=== PATIENT | male | born 1970 | race Caucasian/White ===

== ENCOUNTER → 2018-06-08 | Outpatient (CLI) | payer OTHER ==
[2018-06-08 16:30] LABS: ABSOLUTE EOSINOPHILS # (AUTO) 0.3 10^3/uL (0.0-0.6); ABSOLUTE LYMPHOCYTES (AUTO) 2.3 10^3/uL (0.5-4.7); ABSOLUTE MONOCYTES (AUTO) 0.9 10^3/uL (0.1-1.4); ABSOLUTE NEUT (AUTO) 3.3 10^3/uL (1.7-8.2); BASOPHILS % (AUTO) 0.7 % (0-2); EOSINOPHILS % (AUTO) 4.4 % (0-6); LYMPHOCYTES % (AUTO) 33.6 % (13-45); MEAN CORPUSCULAR HEMOGLOBIN 28.8 pg (27.0-33.4); MEAN CORPUSCULAR HGB CONC 35.5 g/dL (32.0-36.0); MEAN CORPUSCULAR VOLUME 81 fl (80-97); MONOCYTES % (AUTO) 12.6 % (3-13); PLATELET COUNT 242 10^3/uL (150-450); RED BLOOD COUNT 5.55 10^6/uL (4.35-5.55); RED CELL DISTRIBUTION WIDTH 13.9 % (11.5-14.0); SEGMENTED NEUTROPHILS % (AUTO) 48.7 % (42-78); TOTAL CELLS COUNTED % (AUTO) 100 %; WHITE BLOOD COUNT 6.8 10^3/uL (4.0-10.5)
[2018-06-08 16:57] LABS: ALANINE AMINOTRANSFERASE 30 U/L (21-72); ALBUMIN 4.7 g/dL (3.5-5.0); ALKALINE PHOSPHATASE 51 U/L (38-126); ANION GAP 10 (5-19); ASPARTATE AMINO TRANSFERASE 24 U/L (17-59); BILIRUBIN,DIRECT 0.3 mg/dL (0.0-0.4); BILIRUBIN,TOTAL 0.6 mg/dL (0.2-1.3); BLOOD UREA NITROGEN 16 mg/dL (7-20); CALCIUM 10.4 mg/dL (8.4-10.2); CARBON DIOXIDE 25 mmol/L (22-30); CHLORIDE 104 mmol/L (98-107); GLUCOSE 96 mg/dL (75-110); POTASSIUM 3.6 mmol/L (3.6-5.0); SODIUM 138.8 mmol/L (137-145)
== END ==
LOC: CCC 15:36
DX: I10 Essential (primary) hypertension (principal)
CPT/HCPCS: 36415; 80053; 83036; 84443; 85025

== ENCOUNTER → 2018-06-09 | Outpatient (CLI) | payer OTHER ==
[2018-06-09 16:52] LABS: CHOLESTEROL 227.12 mg/dL (0-200); TRIGLYCERIDES 199 mg/dL (<150)
[2018-06-09 17:03] LABS: DIRECT LDL 156 mg/dL (<100)
[2018-06-09 17:07] LABS: VLDL CHOLESTEROL 39.8 mg/dL (10-31)
== END ==
LOC: OD 15:54
DX: Z00.00 Encounter for general adult medical examination without abnormal findings (principal)
CPT/HCPCS: 36415; 80061

== ENCOUNTER 2019-12-15 16:28 | Emergency (ER) | payer SELFPAY ==
[2019-12-15] MEDS ORDERED: DEXAMETHASONE SOD PHOS INJ 10 MG/1 ML VIAL IM ONE (17:21)
[2019-12-15] MEDS ORDERED: KETOROLAC TROMETHAMINE 60 MG/2 ML SDV IM ONE (17:21)
[2019-12-15] MEDS ORDERED: CYCLOBENZAPRINE HCL 10 MG TABLET PO ONE (17:21)
[2019-12-15] MEDS ORDERED: LIDOCAINE 5% (700 MG) TRANSDERMAL ADH..PATCH TP ONE (17:21)
--- NOTE | 2019-12-15 17:21 | ER Document Report ---
ED Medical Screen (RME) - General Chief Complaint: Back Pain Stated Complaint: BACK PAIN Time Seen by Provider: 12/15/19 17:12 Primary Care Provider: [facility] [Primary Care Provider] - Follow up as needed Mode of Arrival: Wheelchair Information source: Patient Notes: 49-year-old male patient with acute on chronic low back pain. Patient reports history of discectomy several years ago. He states occasionally he has flareups similar to this 1. This flareup has been going on for 6 weeks. He reports numbness and tingling both legs although he is able to ambulate. He reports incontinence of urine 3 times in the last 6 weeks. He denies any bowel incontinence. He denies any fevers, chills, IVDU. Patient appears well, nontoxic, vital signs reviewed and are within normal limits. Unable to do full exam in triage, patient will need rectal tone exam due to report of urinary incontinence. He does report urinary incontinence was unexpected, he felt warm slipped down and his pants were wet. He denies it being because of inability to make it to the bathroom in time. I have greeted and performed a rapid initial assessment of this patient. A comprehensive ED assessment and evaluation of the patient, analysis of test results and completion of the medical decision making process will be conducted by additional ED providers. I have specifically instructed the patient or family members with the patient to immediately return to any nursing staff should anything change in the patient's condition or with their chief complaint. TRAVEL OUTSIDE OF THE [place] IN LAST 30 DAYS: No - Related Data Allergies/Adverse Reactions: gabapentin Allergy (Verified 12/15/19 17:18) tramadol Allergy (Verified 06/17/18 12:39) Home Medications: lisinopril-hctz, amlodipine Past Medical History - Social History Chew tobacco use (# tins/day): No Frequency of alcohol use: Rare Drug Abuse: None Renal/ Medical History: Denies: Hx Peritoneal Dialysis Physical Exam - Vital signs Vitals: Temp Pulse Resp BP Pulse Ox 98.7 F 110 H 20 136/80 H 97 12/15/19 16:55 12/15/19 16:55 12/15/19 16:55 12/15/19 16:55 12/15/19 16:55 Course - Vital Signs Vital signs: Temp Pulse Resp BP Pulse Ox 98.7 F 110 H 20 136/80 H 97 12/15/19 16:55 12/15/19 16:55 12/15/19 16:55 12/15/19 16:55 12/15/19 16:55 Doctor's Discharge - Discharge Referrals: [facility] [Primary Care Provider] - Follow up as needed
[2019-12-15] MEDS ORDERED: HYDROMORPHONE HCL INJ/PF 2 MG/ML AMPULE IM ONE (21:12)
[2019-12-15 21:55] LABS: APPEARANCE,URINE CLEAR; BILIRUBIN,URINE NEGATIVE (NEGATIVE); COLOR,URINE STRAW; GLUCOSE, URINE NEGATIVE (NEGATIVE); KETONES,URINE NEGATIVE (NEGATIVE); PROTEIN,URINE NEGATIVE (NEGATIVE); URINE SPECIFIC GRAVITY 1.008; UROBILINOGEN,URINE NEGATIVE mg/dL (<2.0)
--- NOTE | 2019-12-15 22:01 | ER Document Report ---
Entered by DRAGAN CAMARA SCRIBE 12/15/192048 Acting as scribe for:NELLY MEYER, DO ED General - General Chief Complaint: Back Pain Stated Complaint: BACK PAIN Time Seen by Provider: 12/15/19 17:12 Primary Care Provider: [facility] [Primary Care Provider] - Follow up as needed Mode of Arrival: Wheelchair Information source: Patient Notes: This 49 year old male patient presents to the emergency department today with chronic lower back pain. Patient states he has "flareups" x1 a year and this is one of them. Patient states he injured his back at work in 2008 with chronic back pain since. Patient states the past x6 weeks his back pain flared up and has trouble ambulating or getting out of bed. Patient states he takes ibuprofen for pain and does not follow up with pain management anymore since he lost his insurance. Patient states the pain occasionally radiates to his hips and shoots down his lower extremities. Denies abdominal pain or fever. Patient reports loose stool and losing control of his bladder a few times, denies burning. TRAVEL OUTSIDE OF THE [place] IN LAST 30 DAYS: No - Related Data Allergies/Adverse Reactions: gabapentin Allergy (Verified 12/15/19 17:18) tramadol Allergy (Verified 06/17/18 12:39) Home Medications: lisinopril-hctz, amlodipine Past Medical History - General Information source: Patient - Social History Smoking Status: Never Smoker Cigarette use (# per day): No Chew tobacco use (# tins/day): No Frequency of alcohol use: Rare Drug Abuse: None Lives with: Family Family History: None - Past Medical History Cardiac Medical History: Reports: Hx Hypertension Neurological Medical History: Reports: Hx Migraine Traumatic Medical History: Reports: Hx Spine Fracture - 2008 Review of Systems - Review of Systems Constitutional: See HPI. denies: Fever EENT: No symptoms reported Cardiovascular: No symptoms reported Respiratory: No symptoms reported Gastrointestinal: See HPI, Other - loose stool. denies: Abdominal pain Genitourinary: See HPI, Incontinence. denies: Burning Male Genitourinary: No symptoms reported Musculoskeletal: See HPI, Back pain - lower back Skin: No symptoms reported Hematologic/Lymphatic: No symptoms reported Neurological/Psychological: No symptoms reported -: Yes All other systems reviewed and negative Physical Exam - Vital signs Vitals: Temp Pulse Resp BP Pulse Ox 98.7 F 110 H 20 136/80 H 97 12/15/19 16:55 12/15/19 16:55 12/15/19 16:55 12/15/19 16:55 12/15/19 16:55 - General General appearance: Alert - HEENT Head: Normocephalic, Atraumatic Eyes: Normal Pupils: PERRL - Respiratory Respiratory status: No respiratory distress Chest status: Nontender Breath sounds: Normal Chest palpation: Normal - Cardiovascular Rhythm: Regular Heart sounds: Normal auscultation Murmur: No - Abdominal Inspection: Obese Distension: No distension Bowel sounds: Normal Tenderness: Nontender - Rectal Notes: No decreased tone and normal sensation. - Back Notes: Tenderness with palpation to the paraspinal sacral iliac region bilaterally. - Extremities General upper extremity: Normal inspection. No: Edema General lower extremity: Normal inspection. No: Edema - Neurological Neuro grossly intact: Yes Cognition: Normal Orientation: AAOx4 [place] Coma Scale Eye Opening: Spontaneous [place] Coma Scale Verbal: Oriented [place] Coma Scale Motor: Obeys Commands [place] Coma Scale Total: 15 Speech: Normal Sensory: Normal - Psychological Associated symptoms: Normal affect, Normal mood - Skin Skin Temperature: Warm Skin Moisture: Dry Skin Color: Normal Course - Re-evaluation Re-evalutation: 12/15/19 22:58 MDM 49 year old with low back pain that has increased. No injury. No red flags - IVDA, DM, Fever, midline pain. He is improved here with IM dilaudid. Pain down to 2/10 which is improved from the level he has been battling for about 6 weeks. Discussed close follow up and he and expressed understanding. Ua is reviewed too. His perirectal region has nl sensation and nl rectal tone is noted on exam too. He does need close follow up and this was discussed. Also the fact he is a fall risk and more so one tonight was discussed. - Vital Signs Vital signs: Temp Pulse Resp BP Pulse Ox 97.5 F 110 H 14 113/75 94 12/15/19 21:23 12/15/19 16:55 12/15/19 22:01 12/15/19 22:01 12/15/19 22:01 - Laboratory Laboratory results interpreted by me: 12/15/19 21:27 Urine Blood MODERATE H Discharge - Discharge Clinical Impression: Abdominal obesity Back pain Qualifiers: Back pain location: low back pain Chronicity: acute Back pain laterality: left Sciatica presence: with sciatica Sciatica laterality: bilateral sciatica Qualified Code(s): M54.42 - Lumbago with sciatica, left side; M54.41 - Lumbago with sciatica, right side Condition: Stable Disposition: HOME, SELF-CARE Instructions: Low Back Pain ([facility]), Ice Packs ([facility]), Oral Narcotic Medication ([facility]), Pain Medication Injection ([facility]), Warm Packs ([facility]) Additional Instructions: You may use ice and alternate ice and heat to your back. Rest, Call your doctor for follow up in the morning. Please return here for fever, increasing pain, or other problems or other concerns. Your perscription was sent to [facility] in [place]. Referrals: [facility] [Primary Care Provider] - Follow up as needed I personally performed the services described in the documentation, reviewed and edited the documentation which was dictated to the scribe in my presence, and it accurately records my words and actions.
[2019-12-15] MEDS ORDERED: HYDROCODONE/ACETAMINOPHEN 5-325 MG (6 TAB/ER DISP) PO PRN (23:03)
[2019-12-15 23:13] VITALS: BP 104/64
== END 2019-12-15 23:16 | disposition home or self-care (01) ==
LOC: ER 16:28
DX: G89.29 Other chronic pain (principal); M54.42 Lumbago with sciatica, left side; E66.9 Obesity, unspecified; I10 Essential (primary) hypertension; R32 Unspecified urinary incontinence; R19.4 Change in bowel habit; Z79.899 Other long term (current) drug therapy; Z87.81 Personal history of (healed) traumatic fracture; Z88.6 Allergy status to analgesic agent
CPT/HCPCS: 99284; 96372; 81001; J1885; J1170; J1100